=== PATIENT | male | born 1980 | race American Indian/Alaskan Native ===

== ENCOUNTER 2020-04-03 08:50 | Day surgery (SDC) | payer OTHER ==
[~2020-04-03 08:50] MED LIST: LACTATED RINGERS 1,000 ML IV SCH; MIDAZOLAM 2 MG/2 ML INJ IV NR; ceFAZolin/Water 2 GM/20 ML 2 GM/20 ML SYRINGE IV SCH
[2020-04-03] MEDS ORDERED: LIDOCAINE (1%) 10 MG/1 ML VIAL 20 ML MDV ONE (09:19)
[2020-04-03] MEDS ORDERED: BUPIVACAINE/PF (0.5%) 5 MG/1 ML 30 ML VIAL INFILTRATI ONE ×2 (09:20→10:24)
[2020-04-03] MEDS ORDERED: HYDROmorphone 1 MG/1 ML INJ IV PRN (09:26)
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
--- NOTE | 2020-04-03 09:26 | Anesthesia Day of Surgery ---
Anesthesia Day of Surgery - Day of Surgery Patient Examined: Yes Patient H&P Reviewed: Yes Patient is NPO: Yes
[2020-04-03] MEDS ORDERED: MIDAZOLAM 2 MG/2 ML INJ ONE (09:52)
[2020-04-03] MEDS ORDERED: propofoL 200 MG/20 ML VIAL IV ONE ×2 (09:53→10:20)
[2020-04-03] MEDS ORDERED: ONDANSETRON 4 MG/2 ML INJ ONE (10:04)
[2020-04-03] MEDS ORDERED: KETOROLAC 30 MG/1 ML INJ ONE (10:13)
[2020-04-03] MEDS ORDERED: KETAMINE/STERILE WATER 50 MG/ML SYRINGE ONE (10:13)
[2020-04-03] MEDS ORDERED: LIDOCAINE (1%) 10 MG/1 ML VIAL 20 ML MDV INFILTRATI ONE (10:24)
[2020-04-03] MEDS ORDERED: SODIUM CHLORIDE 0.9% IRR 1,500 ML BOTTLE IR ONE (10:29)
--- NOTE | 2020-04-03 11:02 | Short Stay Summary ---
Short Stay Documentation Date of service: 04/03/20 - History Principal diagnosis: soft tissue mass posterior neck H&P: obtained from office - Allergies and Medications Current Medications: Allergies No Known Allergies Allergy (Verified 03/28/20 10:25) Home Medications Medication Instructions Recorded Confirmed Last Taken Type No Known Home Medications [No 03/28/20 03/28/20 Unknown History Reported Home Medications] Active Medications Hydromorphone HCl (Dilaudid) 0.5 mg IV Q10MIN PRN PRN Reason: Pain , Severe (7-10) Stop: 04/03/20 23:00 Lactated Ringer's (Lactated Ringers) 1,000 mls @ 100 mls/hr IV DIRECT VENTURA Stop: 04/03/20 23:59 Last Admin: 04/03/20 09:35 Dose: 100 mls/hr Documented by: Cefazolin Sodium (Ancef/Sterile Water 2 Gm/20 Ml) 2 gm in 20 mls @ 40 mls/hr IV PREOP VENTURA; Protocol Stop: 04/03/20 23:00 Midazolam HCl (Versed) 2 mg IV PREOP NR Stop: 04/03/20 23:59 Last Admin: 04/03/20 09:37 Dose: 2 mg Documented by: - Brief post op/procedure progress note Date of procedure: 04/03/20 Pre-op diagnosis: soft tissue mass posterior neck Post-op diagnosis: same Procedure: excision soft tissue mass posterior neck Anesthesia: MAC, local Findings: 2 cm STM of posterior neck with chronic scarring to surrounding tissue Surgeon: LIBORIO GARCÍA Estimated blood loss: minimal Pathology: list (soft tissue mass posterior neck) Specimen disposition: to lab Condition: stable - Hospital course Hospital course: Pt observed in PACU and discharged to home in stable condition when criteria met - Disposition Condition at discharge: Good Disposition: DC-01 TO HOME OR SELFCARE Short Stay Discharge Plan Activity: no restrictions Diet: regular Wound: open to air Additional Instructions: SEE PRINTED DISCHARGE INSTRUCTIONS Follow up with: JESÚS CARMONA MD [Primary Care Provider] - 7 Days NACHO SAN MD [Staff Physician] - 7 Days [facility] [Provider Group] - 7 Days LIBORIO GARCÍA DO [Staff Physician] - 14 Days Prescriptions: HYDROcodone/APAP 5-325 [[place] 5/325] 1 each PO Q6HR PRN #20 tablet PRN Reason: Pain , Severe (7-10)
[2020-04-03 11:32] VITALS: BP 150/87
--- NOTE | 2020-04-03 13:28 | Post Anesthesia Evaluation ---
- Post Anesthesia Evaluation Patient Participated: Yes Airway Patent: Yes Stable Respiratory Function: Yes Nausea/Vomiting: No Temp > 96.8F: Yes Pain Manageable: Yes Adequeate Hydration: Yes Anesthesia Complications: No
--- NOTE | 2020-04-03 14:05 | Operative Report ---
Operative Report Operative Report: Date of procedure: 04/03/20 Pre-op diagnosis: soft tissue mass posterior neck Post-op diagnosis: same Procedure: excision soft tissue mass posterior neck Anesthesia: MAC, local Findings: 2 cm STM of posterior neck with chronic scarring to surrounding tissue Surgeon: LIBORIO GARCÍA Estimated blood loss: minimal Pathology: list (soft tissue mass posterior neck) Specimen disposition: to lab Condition: stable Hospital course: Pt observed in PACU and discharged to home in stable condition when criteria met HPI and indication: Patient is a 39-year-old male who presented to the surgery clinic for evaluation of a soft tissue mass on his posterior neck. Patient states that it been present for some time and was uncomfortable. It was recommended that it be excised. All risk, benefits, alternatives to surgery discussed with patient questions answered. He was agreeable to proceed and consent was obtained. Procedure in detail: Patient was done from the preoperative area, take back to operating room and placed on the operating table in prone position. After anesthesia was induced the posterior neck was prepped and draped in usual sterile fashion a timeout performed. Local anesthetic was infiltrated to skin at the intended incision site. A 3 cm transverse incision was made along Johan's lines using a 15 blade. Dissection was carried down carefully through the skin and subcutaneous tissue using electrocautery until the subcutaneous tissue was encountered. The lobulated fatty mass was identified and circumferentially dissected free from the surrounding tissue. There was scar tissue encapsulating the mass which was dissected using iris scissors. Once the mass was freed, it was removed from the wound. It measured 1cm wide and 2cm long. The gross appearance of the mass was consistent with a lipoma. This was passed off the table as a specimen. The wound was irrigated hemostasis very carefully ensured. The deep layer was approximated using 3-0 Vicryl interrupted sutures. The skin was approximated using 4-0 Monocryl running subcuticular stitch and skin glue. At the end of the case all sponge, instrument, sharp counts were correct x2. The patient was awoke from anesthesia and taken to PACU in stable condition.
== END 2020-04-03 08:51 | disposition home or self-care (01) ==
LOC: OR 08:50
PROVIDERS: ATTEND Surgery
DX: R22.1 Localized swelling, mass and lump, neck (principal); D17.0 Benign lipomatous neoplasm of skin and subcutaneous tissue of head, face and neck; Z20.828 Contact with and (suspected) exposure to other viral communicable diseases; F17.210 Nicotine dependence, cigarettes, uncomplicated; Z79.899 Other long term (current) drug therapy; Z90.5 Acquired absence of kidney; Z98.890 Other specified postprocedural states
CPT/HCPCS: 21555; 88307; J0690; J1885; J2250; J2405; J2704; J3490; J7120; U0003